=== PATIENT | female | born 1950 ===

== ENCOUNTER 2017-06-07 10:01 | Observation (INO) | payer MEDICARE, BC ==
[2017-06-07 10:12] VITALS: TEMP 98.4; O2SAT 100
--- NOTE | 2017-06-07 10:50 | ED PDOC ---
Syncope/Near Syncope/Dizziness Time Seen by Provider: 06/07/17 10:05 Chief Complaint (Nursing): Weakness/Neurological Deficit Chief Complaint (Provider): Weakness/Neurological Deficit History Per: Patient History/Exam Limitations: no limitations Onset/Duration Of Symptoms: Hrs (prior to arrival ) Additional Complaint(s): Dedra Gonzalez, 67 year old female patient, after experiencing a stroke 10 days prior to arrival, presents to the ED for left sided weakness. The patient states she was admitted at [facility] and was given TPA. She states feeling generalized r sided weakness which spread to entire body while driving to work this morning but now feels completely as baseline. She denies fever, vomiting, diarrhea, cough, and has had no recent illnesses. PMD: To be Provided NIHSS Stroke Scale - Date/Time Evaluation Performed Date Performed: 06/07/17 When Was NIHSS Performed: Baseline - How Severe is the Stroke Level of Consciousness: 0=Alert LOC to Questions: 0=Both comments correct LOC to commands: 0=Obeys both correctly Best Gaze: 0=Normal Visual: 0=No visual loss Facial: 0=Normal Motor Arm - Left: 0=No drift Motor Arm - Right: 0=No drift Motor Leg - Left: 0=No drift Motor Leg - Right: 0=No drift Limb Ataxia: 0=Absent Sensory: 0=Normal Best Language: 0=No aphasia Dysarthia: 0=Normal articulation Extinction & Inattention (Neglect): 0=Normal, no object Score: 0 Severity Of Stroke: 0 = No Stroke Past Medical History Reviewed: Historical Data, Nursing Documentation, Vital Signs Vital Signs: Last Vital Signs Temp 98.4 F 06/07/17 10:11 Pulse 80 06/07/17 10:11 Resp 16 06/07/17 10:11 BP 148/82 06/07/17 10:11 Pulse Ox 100 06/07/17 10:11 - Medical History PMH: HTN Denies: Chronic Kidney Disease - Surgical History Surgical History: No Surg Hx - Family History Family History: States: Unknown Family Hx - Social History Current smoker - smoking cessation education provided: No Ex-Smoker (has not smoked in the last 12 months): No Alcohol: None Drugs: Denies - Home Medications Home Medications: Ambulatory Orders Medication Instructions Recorded Aspirin [Ecotrin] 81 mg PO DAILY 06/07/17 Atorvastatin [Lipitor] 80 mg PO HS 06/07/17 - Allergies Allergies/Adverse Reactions: Allergies Allergy/AdvReac Type Severity Reaction Status Date / Time No Known Allergies Allergy Verified 06/07/17 10:19 Review of Systems ROS Statement: Except As Marked, All Systems Reviewed And Found Negative Constitutional: Negative for: Fever Respiratory: Negative for: Cough Gastrointestinal: Negative for: Vomiting Neurological: Positive for: Weakness (generalized left sided ) Physical Exam - Reviewed Nursing Documentation Reviewed: Yes Vital Signs Reviewed: Yes - Physical Exam Appears: Positive for: Well, Non-toxic, No Acute Distress Head Exam: Positive for: ATRAUMATIC, NORMAL INSPECTION, NORMOCEPHALIC Skin: Positive for: Normal Color, Warm, DRY Eye Exam: Positive for: EOMI, Normal appearance, PERRL ENT: Positive for: Normal ENT Inspection Neck: Positive for: Normal, Painless ROM Cardiovascular/Chest: Positive for: Regular Rate, Rhythm Respiratory: Positive for: CNT, Normal Breath Sounds Gastrointestinal/Abdominal: Positive for: Normal Exam, Bowel Sounds, Soft Back: Positive for: Normal Inspection Extremity: Positive for: Normal ROM Neurologic/Psych: Positive for: Alert, mail messenger contractor II-XII (intact), Oriented, Gait ( stable). Negative for: Motor/Sensory Deficits, Aphasia, Facial Droop - Laboratory Results Result Diagrams: 06/07/17 11:41 06/07/17 11:41 - ECG O2 Sat by Pulse Oximetry: 100 (RA) Pulse Ox Interpretation: Normal Medical Decision Making Medical Decision Making: Impression: Generalized left sided weakness Rule out infection Plan: * Alcohol Serum Stat * COMP Metabolic Panel Stat * Drug Screen, Urine Stat * CBC (With Differential) Stat * Troponin I Stat * CT Head W/O Contrast Stat * [RAD] Chest One View Stat * Reevaluation: Head CT FINDINGS: HEMORRHAGE: No intracranial hemorrhage. BRAIN: No mass effect or edema. No atrophy or chronic microvascular ischemic changes. VENTRICLES: Unremarkable. No hydrocephalus. CALVARIUM: Unremarkable. PARANASAL SINUSES: Unremarkable as visualized. No significant inflammatory changes. MASTOID AIR CELLS: Unremarkable as visualized. No inflammatory changes. OTHER FINDINGS: None. IMPRESSION: Normal CT of the Head. No intracranial mass, hemorrhage or evidence of acute infarct. Chest X-Ray Report: FINDINGS: LUNGS: Clear. PLEURA: No pneumothorax or pleural fluid seen. CARDIOVASCULAR: Normal. OSSEOUS STRUCTURES: No significant abnormalities. VISUALIZED UPPER ABDOMEN: Normal. OTHER FINDINGS: None. IMPRESSION: No active disease. 13:16 Reevaluation: Spoke with Dr. Gonzalez, patients Neurologist at [facility]; contact: [phone]. as per her recommendations: Will complete a CTA, administer Plavix, then discharge and discuss with patient to follow up with Dr. Gonzalez during her office hours tomorrow. 16:48 CTA Results FINDINGS: RIGHT CAROTID ARTERIES: Common Carotid Artery: No significant stenosis identified. Carotid Bifurcation: No significant stenosis identified. Internal Carotid Artery:No significant stenosis identified. External Carotid Artery (proximal branches): No significant stenosis identified. LEFT CAROTID ARTERIES: Common Carotid Artery: No significant stenosis identified. Carotid Bifurcation: No significant stenosis identified. Internal Carotid Artery:No significant stenosis identified. External Carotid Artery (proximal branches): No significant stenosis identified. VERTEBRAL ARTERIES: Right Vertebral Artery: Small but patent vertebrobasilar system, likely congenital. Left Vertebral Artery: Small but patent vertebrobasilar system, likely congenital. OTHER FINDINGS: The bilateral intracranial aneurysms appear patent through the bifurcations including the cavernous, intra canalicular and supraclinoid segments. The bilateral anterior middle and posterior cerebral arteries appear symmetric and patent without significant stenosis aneurysm or arteriovascular malformation associated. The sylvian branches of the middle cerebral arteries appear unremarkable bilaterally as well. The vertebrobasilar system appears small and is likely a congenital future with robust appearing bilateral posterior communicating arteries bilaterally. The anterior communicating artery is patent. IMPRESSION: No significant stenosis in CT angiography of the neck and head. No arteriovenous malformation or aneurysm is encountered either. 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 Further clinical correlation is advised. . pt feels fine, stable vitals througoout answered pt and pts sisters questions at baseline copies of all imaging and results given to patient for follow up tomorrow w her neurologist tomorrow pts ua and chest xray show no infection. CT grossly normal. pt feels well, she states will follow up tomorrow Scribe Attestation: Documented by Sharon Rizzo, acting as a scribe for Vlad Richards MD. Provider Scribe Attestation: All medical record entries made by the Scribe were at my direction and personally dictated by me. I have reviewed the chart and agree that the record accurately reflects my personal performance of the history, physical exam, medical decision making, and the department course for this patient. I have also personally directed, reviewed, and agree with the discharge instructions and disposition. Disposition - Clinical Impression Clinical Impression: General weakness - Patient ED Disposition Is Patient to be Admitted: No Counseled Patient/Family Regarding: Studies Performed, Diagnosis, Need For Followup - Disposition Disposition: Routine/Home Disposition Time: 16:48 Condition: IMPROVED
--- NOTE | 2017-06-07 11:22 | CT ---
PROCEDURE: CT HEAD WITHOUT CONTRAST. HISTORY: weakness resolved COMPARISON: None available. TECHNIQUE: Axial computed tomography images were obtained through the head/brain without intravenous contrast. Radiation dose: Total exam DLP = 845.46 mGy-cm. This CT exam was performed using one or more of the following dose reduction techniques: Automated exposure control, adjustment of the mA and/or kV according to patient size, and/or use of iterative reconstruction technique. FINDINGS: HEMORRHAGE: No intracranial hemorrhage. BRAIN: No mass effect or edema. No atrophy or chronic microvascular ischemic changes. VENTRICLES: Unremarkable. No hydrocephalus. CALVARIUM: Unremarkable. PARANASAL SINUSES: Unremarkable as visualized. No significant inflammatory changes. MASTOID AIR CELLS: Unremarkable as visualized. No inflammatory changes. OTHER FINDINGS: None. IMPRESSION: Normal CT of the Head. No intracranial mass, hemorrhage or evidence of acute infarct.
[2017-06-07 11:46] LABS: BASO % 0.3 % (0.0-2.0); EOS # 0.2 K/uL (0.0-0.7); EOS % 1.5 % (0.0-4.0); HEMOGLOBIN 14.2 g/dL (12.0-16.0); LYMPH # 1.2 K/uL (1.0-4.3); MEAN CELL VOLUME 87.1 fl (81.0-99.0); MEAN CORPUSCULAR HEMOGLOBIN 28.2 pg (27.0-31.0); MEAN CORPUSCULAR HGB CONC 32.4 g/dL (33.0-37.0); MEAN PLATELET VOLUME 8.2 fl (7.2-11.7); MONO # 0.7 K/uL (0.0-0.8); MONO % 6.6 % (0.0-10.0); NEUT # 8.1 K/uL (1.8-7.0); NEUT % 79.6 % (50.0-75.0); RBC 5.02 Mil/uL (3.80-5.20); RED CELL DISTRIBUTION WIDTH 14.1 % (11.5-14.5); WHITE BLOOD COUNT 10.2 K/uL (4.8-10.8)
[2017-06-07 12:06] LABS: ALB/GLOB RATIO 1.4 (1.0-2.1); ALBUMIN 4.2 g/dL (3.5-5.0); ALT/SGPT 44 U/L (9-52); AST/SGOT 34 U/L (14-36); BLOOD UREA NITROGEN 21 mg/dl (7-17); CALCIUM 9.4 mg/dL (8.4-10.2); GFR AFRICAN-AMERICAN > 60; GFR NON-AFRICAN AMERICAN > 60
[2017-06-07 12:08] VITALS: RESP 14
--- NOTE | 2017-06-07 12:25 | RAD ---
PROCEDURE: CHEST RADIOGRAPH, 1 VIEW HISTORY: weakness COMPARISON: None available. FINDINGS: LUNGS: Clear. PLEURA: No pneumothorax or pleural fluid seen. CARDIOVASCULAR: Normal. OSSEOUS STRUCTURES: No significant abnormalities. VISUALIZED UPPER ABDOMEN: Normal. OTHER FINDINGS: None. IMPRESSION: No active disease.
[2017-06-07 13:09] LABS: BARBITURATES, UR NEGATIVE (NEGATIVE); BENZODIAZEPINES, UR NEGATIVE (NEGATIVE); OPIATES, UR NEGATIVE (NEGATIVE); PHENCYCLIDINE, UR NEGATIVE (NEGATIVE)
[2017-06-07] MEDS ORDERED: Sodium Chloride 0.9% 50 ML IV ONE (13:48)
[2017-06-07] MEDS ORDERED: Iodixanol 320 MG/ML 100 ML BOTTLE IV ONE (13:48)
--- NOTE | 2017-06-07 14:20 | RAD ---
HISTORY: gen weakness COMPARISON: 06/07/2017 FINDINGS: LUNGS: No active pulmonary disease. PLEURA: No significant pleural effusion identified, no pneumothorax apparent. CARDIOVASCULAR: Normal. OSSEOUS STRUCTURES: No significant abnormalities. VISUALIZED UPPER ABDOMEN: Normal. OTHER FINDINGS: None. IMPRESSION: No active disease.
[2017-06-07 15:46] VITALS: BP 133/74; PULSE 75
--- NOTE | 2017-06-07 16:40 | CT ---
PROCEDURE: CT Angiography of the head and neck with contrast HISTORY: Brain infarction, rule out clot COMPARISON: None available. TECHNIQUE: Contiguous axial images of the neck were obtained from the level of the skull-base to the superior mediastinum in the arteriographic phase of enhancement. Coronal and sagittal reformats or also generated. IV contrast dose: Visipaque 320, 80 cc Radiation Dose - DLP: 1921 mGy-cm This CT exam was performed using one or more of the following dose reduction techniques: Automated exposure control, adjustment of the mA and/or kV according to patient size, and/or use of iterative reconstruction technique. FINDINGS: RIGHT CAROTID ARTERIES: Common Carotid Artery: No significant stenosis identified. Carotid Bifurcation: No significant stenosis identified. Internal Carotid Artery:No significant stenosis identified. External Carotid Artery (proximal branches): No significant stenosis identified. LEFT CAROTID ARTERIES: Common Carotid Artery: No significant stenosis identified. Carotid Bifurcation: No significant stenosis identified. Internal Carotid Artery:No significant stenosis identified. External Carotid Artery (proximal branches): No significant stenosis identified. VERTEBRAL ARTERIES: Right Vertebral Artery: Small but patent vertebrobasilar system, likely congenital. Left Vertebral Artery: Small but patent vertebrobasilar system, likely congenital. OTHER FINDINGS: The bilateral intracranial aneurysms appear patent through the bifurcations including the cavernous, intra canalicular and supraclinoid segments. The bilateral anterior middle and posterior cerebral arteries appear symmetric and patent without significant stenosis aneurysm or arteriovascular malformation associated. The sylvian branches of the middle cerebral arteries appear unremarkable bilaterally as well. The vertebrobasilar system appears small and is likely a congenital future with robust appearing bilateral posterior communicating arteries bilaterally. The anterior communicating artery is patent. IMPRESSION: No significant stenosis in CT angiography of the neck and head. No arteriovenous malformation or aneurysm is encountered either. 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 Further clinical correlation is advised. .
--- NOTE | 2017-06-09 06:12 | CARD ---
APPROVED REPORT EKG Measurement Heart [id number] <Conclusion> Normal sinus rhythm Low voltage QRS Borderline ECG
== END 2017-06-07 17:37 | disposition home or self-care (01) ==
LOC: H.ER 10:01 → H.EROBSV 10:14
PROVIDERS: ADMIT Emergency Medicine; ATTEND Emergency Medicine
DX: R53.1 Weakness (principal); I10 Essential (primary) hypertension; Z86.73 Personal history of transient ischemic attack (TIA), and cerebral infarction without residual deficits
CPT/HCPCS: 70450; 70496; 70498; 71010; 80053; 82948; 84484; 85025; 93005; 99285; G0378; G0480; Q9967